=== PATIENT | male | born 1945 ===

== ENCOUNTER 2018-08-10 11:24 | Emergency (ER) | payer OTHER ==
[~2018-08-10] VITALS: Ht 172.7 cm; Wt 87.5 kg
== END 2018-08-10 15:36 | disposition home or self-care (01) ==
LOC: ER 11:24
DX: R33.8 Other retention of urine (principal); N39.0 Urinary tract infection, site not specified; C61 Malignant neoplasm of prostate; C79.51 Secondary malignant neoplasm of bone

== ENCOUNTER → 2018-08-20 10:35 | Outpatient (CLI) | payer OTHER | END | disposition home or self-care (01) | LOC: LAB 10:35 | DX: C61 Malignant neoplasm of prostate (principal) ==